=== PATIENT | male | born 1980 | race African-American/Black ===

== ENCOUNTER 2018-07-21 10:04 | Emergency (ER) | payer MEDICAID ==
[~2018-07-21] VITALS: Ht 170.2 cm; Wt 68.0 kg
[2018-07-21] MEDS ORDERED: IBUPROFEN 600MG TABLET PO STA (11:41)
[2018-07-21 12:07] VITALS: BP 135/77
== END 2018-07-21 12:08 | disposition home or self-care (01) ==
LOC: ER 10:30
DX: S46.312A Strain of muscle, fascia and tendon of triceps, left arm, initial encounter (principal); J45.909 Unspecified asthma, uncomplicated; X50.0XXA Overexertion from strenuous movement or load, initial encounter; X50.9XXA Other and unspecified overexertion or strenuous movements or postures, initial encounter; Y93.89 Activity, other specified; Y92.89 Other specified places as the place of occurrence of the external cause; Y99.8 Other external cause status
CPT/HCPCS: 99283